=== PATIENT | male | born 1970 ===

== ENCOUNTER 2023-02-06 08:20 | Inpatient (IN) | payer OTHER ==
[~2023-02-06] VITALS: Ht 170.2 cm; Wt 81.0 kg
[2023-02-06] MEDS ORDERED: CARB-92 PO (08:35)
[2023-02-06] MEDS ORDERED: RISP2TAB86 PO (08:35)
[2023-02-06] MEDS ORDERED: GABA-1216 PO (08:35)
[2023-02-06] MEDS ORDERED: LevETIRAcetam 1,000 MG in DEXTROSE 5%-WATER 100 ML IV ONE (08:45)
[2023-02-06 09:14] LABS: BASOPHILS % (AUTO) 0.3 % (0.0-2.0); EOSINOPHILS % (AUTO) 0.1 % (1.0-6.0); HEMATOCRIT 38.5 % (41-53); HEMOGLOBIN 12.4 g/dL (13.5-17.5); LYMPHOCYTES # (AUTO) 0.8 K/uL (1.0-4.8); LYMPHOCYTES % (AUTO) 10.1 % (22.0-44.0); MEAN CORPUSCULAR HEMOGLOBIN 27.1 pg (26.0-34.0); MEAN CORPUSCULAR HGB CONC 32.3 G/dL (31.0-37.0); MEAN CORPUSCULAR VOLUME 84 fL (80-100); MONOCYTES # (AUTO) 0.6 K/uL (0.1-1.0); MONOCYTES % (AUTO) 7.8 % (2.0-9.0); NEUTROPHILS # (AUTO) 6.3 K/uL (1.8-7.7); NEUTROPHILS % (AUTO) 81.7 % (40.0-70.0); PLATELET COUNT (AUTO) 221 K/uL (150-450); RED BLOOD CELL COUNT(AUTO) 4.58 MIL/uL (4.50-5.90); RED CELL DISTRIBUTION WIDTH 15.1 % (11.5-14.5)
[2023-02-06 09:26] LABS: ANION GAP 9 mmol/L (8-16); CALCIUM, TOTAL 8.9 mg/dL (8.8-10.5); CARBON DIOXIDE 27 mmol/L (22-29); CHLORIDE 99 mmol/L (98-107); CREATININE 0.91 mg/dL (0.60-1.30); GLOMERULAR FILTR. RATE CALC > 60 mL/min (>60); GLUCOSE,RANDOM 101 mg/dL (70-110); POTASSIUM 4.1 mmol/L (3.5-5.1); SODIUM SERUM 135 mmol/L (136-145)
[2023-02-06 09:31] LABS: ALANINE AMINOTRANSFERASE 22 U/L (12-78); ALBUMIN 3.8 g/dL (3.4-5.0); ALKALINE PHOSPHATASE 60 U/L (46-116); ASPARTATE AMINOTRANSFERASE 23 U/L (15-37); BILIRUBIN,TOTAL 0.3 mg/dL (0.1-1.0); CARBAMAZEPINE (TEGRETOL) 1.3 mcg/mL (4.0-12.0); LIPASE 49 U/L (16-77); TOTAL PROTEIN, SERUM 7.3 g/dL (6.4-8.2)
[2023-02-06 09:37] LABS: LACTIC ACID 1.7 mmol/L (0.4-2.0)
[2023-02-06 10:03] LABS: COVID AG,FIA SOURCE NASOPHARYNGEAL
[2023-02-06] MEDS ORDERED: ACETAMINOPHEN 325 MG TABLET PO PRN (13:45)
[2023-02-06] MEDS ORDERED: 0.9% SODIUM CHLORIDE 10 ML SYRINGE IVP PRN (13:45)
[2023-02-06] MEDS ORDERED: OxyCODONE HCL/ACETAMINOPHEN 5-325 MG TABLET PO PRN ×2 (13:45)
[2023-02-06] MEDS ORDERED: MAGNESIUM HYDROXIDE SUSPENSION 30 ML UDCUP PO PRN (13:45)
[2023-02-06] MEDS ORDERED: ONDANSETRON HCL 4 MG/2 ML VIAL IVP PRN (13:45)
[2023-02-06 13:51] VITALS: BP 109/77; PULSE 103; RESP 18; TEMP 98.3
[2023-02-06] MEDS: HEPARIN SODIUM,PORCINE 5,000 UNITS/ML VIAL SQ SCH ×2 (14:09→21:42)
[2023-02-06] MEDS: LevETIRAcetam 500 MG TABLET PO SCH ×2 (14:09→21:42)
[2023-02-06] MEDS: CarBAMazepine 200 MG TABLET PO SCH ×2 (15:37→21:42)
[2023-02-06] MEDS: RisperiDONE 2 MG TABLET PO SCH (15:37)
[2023-02-06] MEDS: PHENYTOIN SODIUM 100 MG ER CAPSULE PO SCH ×2 (15:37→21:42)
[2023-02-06 16:34] VITALS: BP 106/69; PULSE 90; RESP 18; TEMP 97.7
[2023-02-06 20:00] VITALS: BP 115/73; PULSE 111; RESP 19; TEMP 97.9
[2023-02-06] MEDS: DOCUSATE SODIUM 100 MG CAPSULE PO SCH ×2 (21:00→21:42)
[2023-02-06 23:28] VITALS: BP 103/59; PULSE 100; RESP 19; TEMP 98.5
[2023-02-07 03:35] VITALS: BP 108/65; PULSE 95; RESP 20; TEMP 97.8
[2023-02-07 07:24] LABS: BASOPHILS % (AUTO) 0.5 % (0.0-2.0); EOSINOPHILS % (AUTO) 1.3 % (1.0-6.0); HEMATOCRIT 41.6 % (41-53); HEMOGLOBIN 13.8 g/dL (13.5-17.5); LYMPHOCYTES # (AUTO) 1.1 K/uL (1.0-4.8); LYMPHOCYTES % (AUTO) 12.5 % (22.0-44.0); MEAN CORPUSCULAR HEMOGLOBIN 28.2 pg (26.0-34.0); MEAN CORPUSCULAR HGB CONC 33.2 G/dL (31.0-37.0); MEAN CORPUSCULAR VOLUME 85 fL (80-100); MONOCYTES # (AUTO) 0.5 K/uL (0.1-1.0); MONOCYTES % (AUTO) 5.9 % (2.0-9.0); NEUTROPHILS # (AUTO) 6.8 K/uL (1.8-7.7); NEUTROPHILS % (AUTO) 79.8 % (40.0-70.0); PLATELET COUNT (AUTO) 215 K/uL (150-450); RED CELL DISTRIBUTION WIDTH 15.1 % (11.5-14.5)
[2023-02-07 07:33] VITALS: BP 108/75; PULSE 108; RESP 18; TEMP 97.9
[2023-02-07 07:37] LABS: ANION GAP 8 mmol/L (8-16); CALCIUM, TOTAL 8.5 mg/dL (8.8-10.5); CARBON DIOXIDE 27 mmol/L (22-29); CHLORIDE 103 mmol/L (98-107); CREATININE 0.79 mg/dL (0.60-1.30); GLOMERULAR FILTR. RATE CALC > 60 mL/min (>60); GLUCOSE,RANDOM 87 mg/dL (70-110); SODIUM SERUM 138 mmol/L (136-145)
[2023-02-07] MEDS: PANTOPRAZOLE SODIUM 40 MG/VIAL IVP SCH (11:02)
[2023-02-07] MEDS: CarBAMazepine 200 MG TABLET PO SCH ×3 (11:02→20:25)
[2023-02-07] MEDS: RisperiDONE 2 MG TABLET PO SCH (11:03)
[2023-02-07] MEDS: LevETIRAcetam 500 MG TABLET PO SCH ×2 (11:03→20:25)
[2023-02-07] MEDS: PHENYTOIN SODIUM 100 MG ER CAPSULE PO SCH ×3 (11:03→20:25)
[2023-02-07] MEDS: DOCUSATE SODIUM 100 MG CAPSULE PO SCH ×2 (11:03→20:25)
[2023-02-07 11:04] VITALS: BP 116/70; PULSE 104; RESP 18; TEMP 97.7
[2023-02-07] MEDS: GABAPENTIN 100 MG CAPSULE PO SCH (11:04)
[2023-02-07] MEDS: HEPARIN SODIUM,PORCINE 5,000 UNITS/ML VIAL SQ SCH ×2 (11:04→20:25)
[2023-02-07 15:32] VITALS: BP 109/69; PULSE 96; RESP 16; TEMP 98
[2023-02-07 19:57] LABS: APPEARANCE,URINE CLEAR (CLEAR); BILIRUBIN,URINE NEGATIVE (NEGATIVE); GLUCOSE, URINE (UA) NEGATIVE (NEGATIVE); KETONES,URINE NEGATIVE (NEGATIVE); LEUKOCYTE ESTERASE ,URINE NEGATIVE (NEGATIVE); NITRATE,URINE NEGATIVE (NEGATIVE); OCCULT BLOOD,URINE NEGATIVE (NEGATIVE); PROTEIN,URINE NEGATIVE (NEGATIVE); SPECIFIC GRAVITIY, URINE 1.015 (1.003-1.030); UROBILINOGEN,URINE <=1.0 mg/dL (<=1.0)
[2023-02-07 20:04] LABS: AMPHET/METH SCREEN,URINE NEGATIVE (NEGATIVE); BARBITURATE SCREEN, URINE NEGATIVE (NEGATIVE); BENZODIAZEPINES SCREEN,URINE POSITIVE (NEGATIVE); CANNABINOID SCREEN,URINE NEGATIVE (NEGATIVE); COCAINE SCREEN,URINE NEGATIVE (NEGATIVE); METHADONE SCREEN, URINE NEGATIVE (NEGATIVE); OPIATE SCREEN,URINE NEGATIVE (NEGATIVE); PHENCYCLIDINE SCREEN,URINE NEGATIVE (NEGATIVE)
[2023-02-07 20:06] LABS: BACTERIA,URINE None Seen /HPF (None Seen); RBC,URINE None Seen /HPF (0-2); SQUAMOUS EPITHELIAL CELL,UR None Seen /LPF (None Seen); WBC,URINE None Seen /HPF (0-5)
[2023-02-07 20:16] VITALS: BP 107/67; PULSE 94; RESP 18; TEMP 98
[2023-02-08 00:50] VITALS: BP 104/66; PULSE 69; RESP 20; TEMP 98.1
[2023-02-08 04:55] VITALS: BP 104/73; PULSE 73; RESP 20; TEMP 98.1
[2023-02-08 08:50] VITALS: BP 113/73; PULSE 75; RESP 18; TEMP 98
[2023-02-08] MEDS: GABAPENTIN 100 MG CAPSULE PO SCH (09:56)
[2023-02-08] MEDS: DOCUSATE SODIUM 100 MG CAPSULE PO SCH ×2 (09:56→20:21)
[2023-02-08] MEDS: PANTOPRAZOLE SODIUM 40 MG/VIAL IVP SCH (09:56)
[2023-02-08] MEDS: HEPARIN SODIUM,PORCINE 5,000 UNITS/ML VIAL SQ SCH ×2 (09:57→20:06)
[2023-02-08] MEDS: PHENYTOIN SODIUM 100 MG ER CAPSULE PO SCH ×3 (09:57→20:05)
[2023-02-08] MEDS: CarBAMazepine 200 MG TABLET PO SCH ×3 (09:57→20:05)
[2023-02-08] MEDS: LevETIRAcetam 500 MG TABLET PO SCH ×2 (09:57→20:05)
[2023-02-08] MEDS: RisperiDONE 2 MG TABLET PO SCH (09:58)
[2023-02-08 11:15] VITALS: BP 104/78; PULSE 80; RESP 19; TEMP 98.2
[2023-02-08 20:13] VITALS: BP 106/61; PULSE 75; RESP 18; TEMP 98.3
[2023-02-09] VITALS: BP 112/68; PULSE 78; RESP 19; TEMP 97.8
[2023-02-09 04:00] VITALS: BP 101/67; PULSE 81; RESP 20; TEMP 98.3
[2023-02-09 08:35] VITALS: BP 111/71; PULSE 90; RESP 18; TEMP 97.8
[2023-02-09] MEDS: CarBAMazepine 200 MG TABLET PO SCH ×2 (08:39→15:10)
[2023-02-09] MEDS: LevETIRAcetam 500 MG TABLET PO SCH (08:39)
[2023-02-09] MEDS: PANTOPRAZOLE SODIUM 40 MG/VIAL IVP SCH ×2 (08:39→09:00)
[2023-02-09] MEDS: HEPARIN SODIUM,PORCINE 5,000 UNITS/ML VIAL SQ SCH (08:39)
[2023-02-09] MEDS: PHENYTOIN SODIUM 100 MG ER CAPSULE PO SCH ×2 (08:39→15:10)
[2023-02-09] MEDS: GABAPENTIN 100 MG CAPSULE PO SCH (08:39)
[2023-02-09] MEDS: RisperiDONE 2 MG TABLET PO SCH (08:39)
[2023-02-09] MEDS: DOCUSATE SODIUM 100 MG CAPSULE PO SCH (08:40)
[2023-02-09] MEDS ORDERED: DOCU-385 PO (14:13)
[2023-02-09] MEDS ORDERED: LEVE500T20 PO (14:14)
[2023-02-09] MEDS ORDERED: PHEN50 PO (14:16)
[2023-02-09 14:50] VITALS: BP 96/61; PULSE 91; RESP 18; TEMP 97.6
== END 2023-02-09 13:30 | disposition home or self-care (01) | DRG 53 ==
LOC: EMS 08:21 → AHU 10:34 → 5S 12:34
PROVIDERS: ADMIT Internal Medicine; ATTEND Internal Medicine
DX: G40.409 Other generalized epilepsy and epileptic syndromes, not intractable, without status epilepticus (principal); E87.1 Hypo-osmolality and hyponatremia; D64.9 Anemia, unspecified; Z20.822 Contact with and (suspected) exposure to COVID-19; F19.11 Other psychoactive substance abuse, in remission
CPT/HCPCS: 70450; 71045; 80048; 80053; 80156; 80307; 81001; 83605; 83690; 84484; 85025; 87081; 93005; 97163; 99291; C9113; G0378; G0480; J0712; J1644; J7060; 36415-L1; 36415-TC